=== PATIENT | male | born 1995 | race Caucasian/White ===

== ENCOUNTER 2019-08-13 13:47 | Outpatient (CLI) | payer OTHER | END 2019-08-13 13:48 | disposition home or self-care (01) | LOC: COV 13:47 | PROVIDERS: ATTEND Family Medicine | DX: R05 Cough (principal); R50.9 Fever, unspecified | CPT/HCPCS: 81599 ==

== ENCOUNTER 2019-08-19 11:19 | Emergency (ER) | payer OTHER ==
--- NOTE | 2019-08-19 11:40 | ED Physician Documentation ---
PD HPI URI - Stated complaint Stated Complaint: FEVER/COUGH - History obtained from History obtained from: Patient - History of Present Illness Timing - onset: How many weeks ago (1) Timing duration: Weeks (1) Timing details: Gradual onset, Still present (He has had fever cough and congestion for about a week. He works at [employer] where there had been some coronavirus outbreak. He was tested along with the other employees and residents and his test was positive for rivera virus. He has been off work and having self seclusion. He been having considerable cough with some dis comfort in the chest and a feeling of heaviness in the sternal area more so in the last day or 2. He states his cough had become somewhat productive the last day or 2. His fevers are not quite as bad. He was feeling that he needed a chest x-ray to lab evaluate for pneumonia.) Associated symptoms: Fever, Nasal congestion, Productive cough, Chest pain (anterior with coughing), Dyspnea. No: Sore throat, NVD Contributing factors: Sick contact (Exposed to coronavirus at [employer] where he works and is positive for that). No: Travel, Immunocompromised, COPD / asthma Similar symptoms before: Has not had sx before Recently seen: Not recently seen Review of Systems Constitutional: reports: Fever, Chills, Myalgias Nose: reports: Congestion. denies: Rhinorrhea / runny nose Throat: denies: Sore throat Cardiac: reports: Chest pain / pressure. denies: Palpitations, Pedal edema, Calf pain Respiratory: reports: Dyspnea, Cough Neurologic: reports: Generalized weakness. denies: Focal weakness, Numbness, Altered mental status, Headache PD PAST MEDICAL HISTORY - Past Medical History Cardiovascular: None Respiratory: None Endocrine/Autoimmune: None GI: None : None HEENT: None Psych: None Musculoskeletal: None Derm: None - Past Surgical History Past Surgical History: No - Present Medications Home Medications: Ambulatory Orders Medication Instructions Recorded Confirmed Acetaminophen [Tylenol] 2 tab Q6HR PRN 08/19/19 08/19/19 Albuterol Sulfate [Albuterol 2 puffs IH QID #1 hfa.aer.ad 08/19/19 Sulfate Hfa] Benzonatate [Tessalon Perle] 100 mg PO TID PRN #30 capsule 08/19/19 Doxycycline Monohydrate 100 mg PO BID #14 tablet 08/19/19 - Allergies Allergies/Adverse Reactions: Allergies Allergy/AdvReac Type Severity Reaction Status Date / Time No Known Drug Allergies Allergy Verified 07/24/15 23:31 - Social History Does the pt smoke?: No Smoking Status: Never smoker Does the pt drink ETOH?: No Does the pt have substance abuse?: No - Immunizations Immunizations are current?: Yes - POLST Patient has POLST: No PD ED PE NORMAL - Vitals Vital signs reviewed: Yes - General General: Alert and oriented X 3, No acute distress, Well developed/nourished - HEENT HEENT: Ears normal, Moist mucous membranes, Pharynx benign - Neck Neck: Supple, no meningeal sign, No adenopathy - Cardiac Cardiac: RRR, No murmur - Respiratory Respiratory: Clear bilaterally (Minimal end expiratory wheezes scattered. No coarse sounds. No prolonged expirations or significant wheeze.) - Abdomen Abdomen: Soft, Non tender Results - Vitals Vitals: Vital Signs - 24 hr 08/19/19 08/19/19 11:39 13:09 Temperature 99.0 C H 37.1 C Heart Rate 65 60 Respiratory 18 16 Rate Blood Pressure 136/80 H 118/76 O2 Saturation 99 100 Oxygen O2 Source Room air PD MEDICAL DECISION MAKING - ED course Complexity details: considered differential (He is positive for coronavirus. His lungs sound good and his oxygenation is 99%. I talked with the patient and we discussed that did not feel that a chest x-ray would alter the course of his treatment. He had been having cough and fevers and states his fevers have been decreasing and is having a bit more productive cough at this time. Con sideration for coinfection and so we can treat him with medication for cough as well as an inhaler to help with breathing and antibiotic in case. He is comfortable with that plan.), d/w patient Departure - Departure Disposition: 01 Home, Self Care Clinical Impression: Coronavirus infection, Lower respiratory infection Condition: Stable Record reviewed to determine appropriate education?: Yes Instructions: ED URI Viral Follow-Up: [facility] [Provider Group] Prescriptions: Albuterol Sulfate [Albuterol Sulfate Hfa] 2 puffs IH QID #1 hfa.aer.ad Benzonatate [Tessalon Perle] 100 mg PO TID PRN #30 capsule PRN Reason: Cough Doxycycline Monohydrate 100 mg PO BID #14 tablet Comments: Stay well-hydrated. Tylenol or ibuprofen for fevers and pains. Use the albuterol inhaler 2 puffs 4 times a day to help improve airflow and breathing. Tessalon as needed for cough suppression. Your symptoms are consistent with the coronavirus effect on the bronchials. Your lungs sound clear and your oxygenation is good so does not seem like pneumonia at this time. There would not be a difference in treatment at this point even with mild pneumonia. Consideration would be any potential coinfection with bacterial causes as well so we can go with an antibiotic as well for that possibility. Discharge Date/Time: 08/19/19 12:20
[2019-08-19] MEDS ORDERED: ACETAMINOPHEN 325 MG TABLET PO STA (12:01)
[2019-08-19] MEDS ORDERED: DOXYCYCLINE 100 MG TABLET PO STA (12:01)
[2019-08-19] MEDS ORDERED: BENZONATATE 100 MG CAPSULE PO STA (12:01)
[2019-08-19] MEDS ORDERED: DEXAMETHASONE 10 MG/ML VIAL PO STA (12:01)
[2019-08-19] MEDS ORDERED: CHERRY SYRUP 10 ML UDC PO ONE (12:01)
[2019-08-19 13:14] VITALS: BP 118/76
== END 2019-08-19 12:20 | disposition home or self-care (01) ==
LOC: ED 11:19
DX: J22 Unspecified acute lower respiratory infection (principal); B97.29 Other coronavirus as the cause of diseases classified elsewhere
CPT/HCPCS: 99283; 99284; A9270